=== PATIENT | female | born 1980 | race Caucasian/White ===

== ENCOUNTER → 2016-08-19 | Outpatient (CLI) | payer OTHER ==
[2016-08-19 18:22] LABS: FREE T4 1.32 NG/DL (0.76-1.46)
[2016-08-20 10:32] LABS: PRETREATED FOLATE FOR RBCFOL 12.6 NG/ML
== END ==
LOC: M SMT 15:01
PROVIDERS: ATTEND Nurse Practitioner Pediatrics
DX: F41.9 Anxiety disorder, unspecified (principal); E03.9 Hypothyroidism, unspecified

== ENCOUNTER → 2016-08-30 | Outpatient (CLI) | payer OTHER | LOC: M SMT 10:40 | PROVIDERS: ATTEND Specialist | DX: Z31.438 Encounter for other genetic testing of female for procreative management (principal) ==

== ENCOUNTER → 2016-09-16 | Outpatient (REF) | payer OTHER | LOC: M LAB REF 16:57 | PROVIDERS: ATTEND Physician Assistant | DX: N76.0 Acute vaginitis (principal) ==

== ENCOUNTER → 2016-10-07 | Outpatient (CLI) | payer OTHER ==
[2016-10-08 08:54] LABS: THYROID PEROXIDASE ANTIBODY 150.3 U/ML (<60.0)
== END ==
LOC: M SMT 11:22
PROVIDERS: ATTEND Specialist
DX: E03.9 Hypothyroidism, unspecified (principal)

== ENCOUNTER → 2016-10-08 | Outpatient (CLI) | payer OTHER ==
--- NOTE | 2016-10-08 10:56 | REP ---
Clinical: Anatomical evaluation. Comparison: None . Findings: Examination demonstrates a single live intrauterine in breech presentation. motion is identified by technologist. Placenta is noted posteriorly and grade zero without evidence for placenta previa or abruption. Placental tip is 2.5 cm from the closed internal os. Amniotic fluid volume is normal. Cervix measures 3.2 cm in length and appears closed. No evidence for nuchal cord. Gestational age by LMP 20 weeks 2 days with FRANCOISE 02/23/2017 . Gestational age by current measurements 20 weeks 2 days with FRANCOISE 02/23/2017 . FHR equals 133 beats per minute. BPD 4.6 cm 20 weeks 0 days HC 17.3 cm 19 weeks 6 days AC 16.3 cm 21 weeks 3 days FL 3.5 cm 21 weeks 0 days HL 3.3 cm 20 weeks 6 days HC/AC ratio 1.06 Estimated weight 393 grams ( 72nd percentile). Anatomical assessment demonstrates normal structures including cranium, choroid plexus, cavum, cerebellum/posterior fossa, facial features, lungs, four-chamber heart/ventricular outflow tracts, diaphragm, stomach, cord insertion/three-vessel cord, kidneys/bladder, spine, and extremities. Impression: Single live intrauterine in breech presentation demonstrating appropriate interval growth. Anatomical assessment is complete and normal. Signed by Todd Cook MD 10/08/2016 10:47 A
== END ==
LOC: M SMT 09:30
PROVIDERS: ATTEND Specialist
DX: Z36 Encounter for antenatal screening of mother (principal); Z3A.20 20 weeks gestation of pregnancy

== ENCOUNTER → 2016-11-19 | Outpatient (CLI) | payer OTHER ==
[2016-11-19 13:04] LABS: BASO % 0.3 % (0.0-1.0); EOS # 0.2 K/mm3 (0.0-0.50); EOS % 2.2 % (0.0-3.0); LARGE UNSTAINED CELL # 0.1 K/mm3 (0.0-0.4); LARGE UNSTAINED CELL % 1.3 % (0.0-4.0); LYMPH # 1.2 K/mm3 (1.5-4.5); LYMPH % 14.6 % (24.0-44.0); MEAN CORPUSCULAR HGB CONC 34.1 g/dl (32.0-36.5); MEAN CORPUSCULAR VOLUME 99.7 fl (80.0-96.0); MONO # 0.3 K/mm3 (0.0-0.8); MONO % 4.3 % (0.0-5.0); NEUTROPHILS # 6.2 K/mm3 (1.8-7.7); NEUTROPHILS % 77.5 % (36.0-66.0); PLATELET COUNT, AUTOMATED 179 k/mm3 (150-450); RED CELL DISTRIBUTION WIDTH 12.8 % (11.5-14.5); WHITE BLOOD COUNT 7.9 K/mm3 (4.0-10.0)
== END ==
LOC: M SMT 08:57
PROVIDERS: ATTEND Specialist
DX: Z34.82 Encounter for supervision of other normal pregnancy, second trimester (principal)
CPT/HCPCS: 36415; 82950; 85025; 86850; 86900; 86901; J2790

== ENCOUNTER → 2016-12-02 | Outpatient (CLI) | payer OTHER ==
[2016-12-02 13:55] LABS: THYROXINE (T4) 16.7 UG/DL (4.5-12.0)
[2016-12-03 11:25] LABS: THYROID PEROXIDASE ANTIBODY 89.2 U/ML (<60.0)
== END ==
LOC: M SMT 11:38
PROVIDERS: ATTEND Specialist
DX: E03.9 Hypothyroidism, unspecified (principal)

== ENCOUNTER → 2016-12-06 | Outpatient (CLI) | payer OTHER ==
[2016-12-06 13:40] LABS: FREE T4 1.22 NG/DL (0.76-1.46)
[2016-12-07 11:58] LABS: PRETREATED FOLATE FOR RBCFOL 11.4 NG/ML
== END ==
LOC: M SMT 09:03
PROVIDERS: ATTEND Nurse Practitioner Pediatrics
DX: Z13.9 Encounter for screening, unspecified (principal); F41.9 Anxiety disorder, unspecified; E03.9 Hypothyroidism, unspecified

== ENCOUNTER → 2016-12-15 | Outpatient (CLI) | payer OTHER ==
--- NOTE | 2016-12-15 21:24 | REP ---
Clinical: Anatomical evaluation. Comparison: 10/08/2016 . Findings: Examination demonstrates a single live intrauterine in cephalic presentation. motion is identified by technologist. Placenta is noted posteriorly and grade one without evidence for placenta previa or abruption. Placental tip is 4.7 cm from the internal os. Amniotic fluid volume is normal. Cervix measures 2.9 cm in length and appears closed. No evidence for nuchal cord. Gestational age by LMP 30 weeks 0 days with FRANCOISE 02/23/2017 . Amniotic fluid index equals 17.2 cm (9.0 - 23.4). heart rate equals 122 beats per minute. Umbilical cord SD ratio equals 2.46 Impression: Single live intrauterine in cephalic presentation. Cervix measures 2.9 cm length and appears closed. Placenta is noted posteriorly, grade 1, and without evidence for placenta previa. Signed by Todd Cook MD 12/15/2016 09:15 P
== END ==
LOC: M RAD 09:52
PROVIDERS: ATTEND Specialist
DX: O44.43 Low lying placenta NOS or without hemorrhage, third trimester (principal); Z36 Encounter for antenatal screening of mother; Z3A.30 30 weeks gestation of pregnancy